=== PATIENT | male | born 2000 | race Caucasian/White ===

== ENCOUNTER 2018-03-27 16:53 | Emergency (ER) | END 2018-03-27 18:26 | disposition home or self-care (01) ==

== ENCOUNTER 2019-07-22 01:22 | Emergency (ER) | payer MEDICAID ==
[~2019-07-22] VITALS: Ht 167.6 cm; Wt 74.0 kg
[~2019-07-22 01:22] MED LIST: IBUP-1542 PO
[2019-07-22 01:32] VITALS: Ht 167.6 cm; Wt 74.0 kg
[2019-07-22] MEDS ORDERED: KETOROLAC 30 MG INJ IM STA (02:07)
[2019-07-22 02:42] VITALS: BP 112/62; PULSE 64; RESP 14
== END 2019-07-22 02:42 | disposition home or self-care (01) ==
LOC: FTE 01:22
DX: S39.012A Strain of muscle, fascia and tendon of lower back, initial encounter (principal); X50.0XXA Overexertion from strenuous movement or load, initial encounter; Y92.89 Other specified places as the place of occurrence of the external cause
CPT/HCPCS: 96372; J1885; Z7502